=== PATIENT | female | born 1955 | race African-American/Black ===

== ENCOUNTER 2021-09-18 05:31 | Inpatient (IN) ==
[2021-09-18] MEDS ORDERED: SODIUM CHLORIDE 0.9% 1,000 ML IV STA (06:41)
[2021-09-18] MEDS ORDERED: ONDANSETRON 4 MG/2 ML VIAL IV STA (06:41)
[2021-09-18 06:56] LABS: Basophils % 0.1 % (0.0-0.8); Eosinophils # 0.1 10*3/uL (0.0-0.87); Eosinophils % 0.9 % (0.00-10.9); Immature Granulocytes % 0.9 %; Immature Granulocytes Absolute 0.12 #; Lymphocytes # 1.2 10*3/uL (1.4-4.0); Lymphocytes % 8.8 % (21.3-54.2); Mean Corpuscular HGB Conc 30.4 GM/DL (32-36); Mean Corpuscular Volume 96.6 FL (87-102); Mean Platelet Volume 10.5 FL (9.6-12.0); Monocytes % 7.3 % (1.7-12.7); NRBC # 0.02 10*3/uL; Platelet Count 275 T/CUMM (130-400); Red Blood Count 1.16 MC/CUMM (3.8-5.5); Red Cell Distribution Width 16.2 % (9.3-17.3); White Blood Count 13.7 T/CUMM (4-12)
[2021-09-18 07:00] LABS: Hematocrit 11.2 VOL% (35.7-47.0); Hemoglobin 3.4 GM/DL (12.0-16.0)
[2021-09-18 07:02] LABS: Bilirubin,Total 0.8 MG/DL (0.20-1.00); Calcium 8.2 MG/DL (8.5-10.1); Osmolality,Calculated 286.8 MOS/KG (273-304); Potassium 3.5 MMOL/L (3.5-5.1); Total Protein 6.7 G/DL (6.4-8.2)
[2021-09-18 07:05] LABS: Bacteria,Urine Occasional /HPF (Few); Hyaline Casts,Urine 25 /LPF (0-3); Mucus,Urine Occasional /LPF (Occasional); RBC,Urine <1 /HPF (0-4); Squamous Epithelial Cell,Urine Occasional /HPF (0-10)
[2021-09-18 07:07] LABS: Urine Color Yellow (Yellow)
[2021-09-18 07:08] LABS: Bilirubin,Urine Negative (Negative); Blood, Urine Negative (Negative); Glucose,Urine (UA) Negative (Negative); Ketones,Urine Negative (Negative); Nitrite,Urine Negative (Negative); Protein,Urine 30 mg/dL (Negative); Urine Appearance Clear (Clear); Urine Urobilinogen 0.2 eU/dL (<2.0)
[2021-09-18] MEDS ORDERED: SODIUM CHLORIDE 0.9% 1,000 ML IV PRN (07:14)
[2021-09-18 07:20] LABS: Barbiturates Screen,Urine Negative (Negative); Benzodiazepines Screen,Urine Negative (Negative); Cannabinoid Screen,Urine Negative (Negative); Opiate Screen,Urine Negative (Negative); Phencyclidine Screen,Urine Negative (Negative)
[2021-09-18 07:32] LABS: Hypochromia 1+; Lymphocytes 4 % (20-55); Microcytosis 1+; Platelet Estimate Adequate; Segmented Neutrophils 86 % (50-85); Total Cells Counted 100
[2021-09-18 07:38] LABS: Folate 11.44 NG/ML (5.38-24.0)
[2021-09-18 07:39] LABS: % Iron Saturation 6.7 % (18-50); Ferritin 8.6 ng/mL (8-252)
[2021-09-18] MEDS ORDERED: MORPHINE 2 MG/1 ML SYRINGE IV PRN (08:14)
[2021-09-18] MEDS ORDERED: ALBUTEROL 2.5 MG/3 ML NEB RESP TX PRN (08:14)
[2021-09-18 09:15] LABS: Hepatitis B Surface Ag Quant < 0.10 Index; Hepatitis B Surface Ag Result Non-Reactive (NonReactive); Hepatitis C Virus Ab Quant 0.08 Index; Hepatitis C Virus Ab Result Non-Reactive (NonReactive)
[2021-09-18] MEDS: LACTATED RINGERS 1,000 ML IV SCH ×2 (09:32→18:20)
[2021-09-18] MEDS: PANTOPRAZOLE 40 MG VIAL IV SCH ×2 (11:15→20:47)
[2021-09-18 15:06] LABS: Basophils % 0.1 % (0.0-0.8); Eosinophils % 0.2 % (0.00-10.9); Hematocrit 24.3 VOL% (35.7-47.0); Hemoglobin 7.9 GM/DL (12.0-16.0); Immature Granulocytes % 0.5 %; Immature Granulocytes Absolute 0.05 #; Lymphocytes # 1.3 10*3/uL (1.4-4.0); Mean Corpuscular HGB Conc 32.5 GM/DL (32-36); Mean Corpuscular Volume 86.5 FL (87-102); Mean Platelet Volume 10.1 FL (9.6-12.0); Monocytes % 7.8 % (1.7-12.7); Neutrophils % 79.4 % (38.7-73.9); Platelet Count 195 T/CUMM (130-400); Red Blood Count 2.81 MC/CUMM (3.8-5.5); White Blood Count 10.7 T/CUMM (4-12)
[2021-09-18] MEDS: LACTULOSE 20 GM/30 ML UDCUP PO SCH ×2 (18:33→21:00)
[2021-09-19] MEDS: LACTATED RINGERS 1,000 ML IV SCH ×4 (01:48→13:46)
[2021-09-19 04:24] LABS: Basophils % 0.3 % (0.0-0.8); Eosinophils # 0.3 10*3/uL (0.0-0.87); Eosinophils % 3.6 % (0.00-10.9); Hematocrit 28.5 VOL% (35.7-47.0); Hemoglobin 9.5 GM/DL (12.0-16.0); Immature Granulocytes % 0.3 %; Immature Granulocytes Absolute 0.03 #; Lymphocytes # 2.2 10*3/uL (1.4-4.0); Lymphocytes % 23.4 % (21.3-54.2); Mean Corpuscular HGB Conc 33.3 GM/DL (32-36); Mean Corpuscular Volume 86.6 FL (87-102); Mean Platelet Volume 10.1 FL (9.6-12.0); Monocytes % 9.7 % (1.7-12.7); Neutrophils % 62.7 % (38.7-73.9); Platelet Count 165 T/CUMM (130-400); Red Blood Count 3.29 MC/CUMM (3.8-5.5); Red Cell Distribution Width 14.9 % (9.3-17.3); White Blood Count 9.6 T/CUMM (4-12)
[2021-09-19 04:40] LABS: INR 1.1; PT Patient Result 11.8 SECS (10.5-12.0)
[2021-09-19 04:42] LABS: Albumin 1.6 G/DL (3.4-5.0); Bilirubin,Total 1.6 MG/DL (0.20-1.00); Calcium 7.9 MG/DL (8.5-10.1); Osmolality,Calculated 278.4 MOS/KG (273-304); Potassium 3.6 MMOL/L (3.5-5.1); Total Protein 5.7 G/DL (6.4-8.2)
[2021-09-19] MEDS: PANTOPRAZOLE 40 MG VIAL IV SCH ×2 (13:10→13:22)
[2021-09-19] MEDS: LACTULOSE 20 GM/30 ML UDCUP PO SCH ×2 (13:58→20:33)
[2021-09-19] MEDS ORDERED: propofoL 200 MG/20 ML VIAL IV ONE (14:38)
[2021-09-19] MEDS ORDERED: LIDOCAINE 2% 5 ML VIAL ONE (14:38)
[2021-09-19] MEDS ORDERED: ETOMIDATE 20 MG/10 ML VIAL IV ONE (14:38)
[2021-09-19] MEDS: SIMETHICONE CHEW 125 MG TABLET PO PRN (16:02)
[2021-09-20] MEDS: SIMETHICONE CHEW 125 MG TABLET PO PRN (05:35)
[2021-09-20 06:06] LABS: Basophils % 0.3 % (0.0-0.8); Eosinophils # 0.2 10*3/uL (0.0-0.87); Eosinophils % 2.3 % (0.00-10.9); Hematocrit 34.7 VOL% (35.7-47.0); Hemoglobin 11.4 GM/DL (12.0-16.0); Immature Granulocytes % 0.3 %; Immature Granulocytes Absolute 0.03 #; Lymphocytes # 1.5 10*3/uL (1.4-4.0); Lymphocytes % 15.2 % (21.3-54.2); Mean Corpuscular HGB Conc 32.9 GM/DL (32-36); Mean Corpuscular Volume 87.2 FL (87-102); Mean Platelet Volume 10.3 FL (9.6-12.0); Monocytes % 11.4 % (1.7-12.7); Neutrophils % 70.5 % (38.7-73.9); Platelet Count 171 T/CUMM (130-400); Red Blood Count 3.98 MC/CUMM (3.8-5.5); Red Cell Distribution Width 15.6 % (9.3-17.3); White Blood Count 10.1 T/CUMM (4-12)
[2021-09-20 06:24] LABS: Calcium 8.5 MG/DL (8.5-10.1); Osmolality,Calculated 273.7 MOS/KG (273-304); Potassium 3.5 MMOL/L (3.5-5.1)
[2021-09-20] MEDS: LACTULOSE 20 GM/30 ML UDCUP PO SCH (08:27)
[2021-09-20] MEDS: PANTOPRAZOLE 40 MG VIAL IV SCH (08:35)
[2021-09-20 11:51] VITALS: BP 131/56
[2021-09-21] MEDS ORDERED: PANTOPRAZOLE 40 MG TABLET PO SCH (09:00)
== END 2021-09-20 16:25 | disposition home or self-care (01) | DRG 432 ==
LOC: N.ED 05:31 → N.EDINP 07:35 → SUATTDRO 07:35 → N.ICU 08:33 → N.3E 09-19 15:24
PROVIDERS: ADMIT Internal Medicine; ATTEND Hospitalist
PROC: EGDWEBL (ICD-10-PCS; 2021-09-19 07:35)